=== PATIENT | female | born 1990 | race African-American/Black ===

== ENCOUNTER 2020-07-31 11:12 | Inpatient (IN) | payer SELFPAY ==
[2020-07-31] MEDS ORDERED: Butorphanol 1 MG/ML SDV IVPUSH PRN (11:43)
[2020-07-31] MEDS ORDERED: Water For Irrigation,Sterile 1,000 ML Container IRR PRN (11:43)
[2020-07-31] MEDS ORDERED: Carboprost Tromethamine 250 MCG/1 ML Amp IM PRN (11:43)
[2020-07-31] MEDS ORDERED: Sodium Chloride 0.9% 2.5 ML Syringe FLUSH PRN (11:43)
[2020-07-31] MEDS ORDERED: Misoprostol 200 MCG Tab PO PRN (11:43)
[2020-07-31] MEDS ORDERED: Methylergonovine 0.2 MG/1 ML Amp IM PRN (11:43)
[2020-07-31] MEDS ORDERED: Lidocaine 1% 50 ML MDV INJECT PRN (11:43)
[2020-07-31] MEDS ORDERED: Sodium Chloride 0.9% 10 ML SDV IV PRN (11:43)
[2020-07-31] MEDS ORDERED: Tranexamic Acid 1,000 MG in Sodium Chloride 0.9% 100 ML IV PRN (11:43)
[2020-07-31] MEDS ORDERED: Nalbuphine 10 MG/1 ML Vial IVPUSH PRN (11:43)
[2020-07-31] MEDS ORDERED: Sodium Chloride 0.9% 10 ML Syringe FLUSH PRN (11:43)
[2020-07-31] MEDS ORDERED: Oxytocin/0.9 % Sodium Chloride 30 UNIT/500 ML BAG IV SCH (11:45)
[2020-07-31] MEDS ORDERED: Lactated Ringers 1,000 ML IV SCH (11:45)
--- NOTE | 2020-07-31 13:37 | PCM.LDHP ---
L&D History of Present Illness - General Date of Service: 07/31/20 Admit Problem/Dx: Patient Status Order with Admit Dx/Problem 07/31/20 11:43 Patient Status [ADT] Routine Admission Diagnosis/Problem Admission Diagnosis/Problem Source of Information: Patient History Limitations: Reports: No Limitations - History of Present Illness Improves with: Reports: None Worsens with: Reports: None Associated Symptoms: Reports: N - Related Data Allergies/Adverse Reactions: Allergies Allergy/AdvReac Type Severity Reaction Status Date / Time No Known Allergies Allergy Verified 07/31/20 11:43 Social & Family History - Tobacco Use Tobacco Use Status *Q: Never Tobacco User Second Hand Smoke Exposure: No - Recreational Drug Use Recreational Drug Use: No H&P Review of Systems - Review of Systems: Review Of Systems: See Below General: Reports: No Symptoms HEENT: Reports: No Symptoms Pulmonary: Reports: No Symptoms Cardiovascular: Reports: No Symptoms Gastrointestinal: Reports: No Symptoms Genitourinary: Reports: No Symptoms Musculoskeletal: Reports: No Symptoms Skin: Reports: No Symptoms Psychiatric: Reports: No Symptoms Neurological: Reports: No Symptoms Hematologic/Lymphatic: Reports: No Symptoms Immunologic: Reports: No Symptoms L&D Exam - Exam Exam: See Below - Vital Signs Weight: 77.564 kg - OB Specific Contraction Intensity: Moderate Movement: Active Heart Tones: Present Presentation: Vertex - Banks Score Banks Score Cervix Position: Midposition Banks Score Consistency: Soft Banks Score Effacement: >80% Banks Score Dilation: > 5 cm Banks Score Infant's Station: -2 Banks Score Total: 10 - Exam General: Alert, Oriented HEENT: PERRLA, Conjunctiva Clear, EACs Clear, EOMI, Hearing Intact, Mucosa Moist & [place], Nares Patent, Normal Nasal Septum, Posterior Pharynx Clear, TMs Clear Neck: Supple, Trachea Midline Lungs: Clear to Auscultation, Normal Respiratory Effort Cardiovascular: Regular Rate, Regular Rhythm GI/Abdominal Exam: Normal Bowel Sounds, Soft, Non-Tender, No Organomegaly, No Distention, No Abnormal Bruit, No Mass, Pelvis Stable Rectal Exam: Normal Exam, Normal Rectal Tone Genitourinary: Normal external exam, Normal bimanual exam, Normal speculum exam Back Exam: Normal Inspection, Full Range of Motion Extremities: Normal Inspection, Normal Range of Motion, Non-Tender, No Pedal Edema, Normal Capillary Refill Skin: Warm, Dry, Intact Neurological: Cranial Nerves Intact, Reflexes Equal Bilateral Psychiatric: Alert, Normal Affect, Normal Mood - Patient Data Lab Results Last 24 hrs: Laboratory Results - last 24 hr 07/31/20 07/31/20 07/31/20 Range/Units 12:00 12:10 12:10 WBC 7.30 (4.0-11.0) K/uL RBC 3.87 L (4.30-5.90) M/uL Hgb 10.9 L (12.0-16.0) g/dL Hct 34.3 L (36.0-46.0) % MCV 88.6 (80.0-98.0) fL MCH 28.2 (27.0-32.0) pg MCHC 31.8 (31.0-37.0) g/dL RDW Std Deviation 48.2 (28.0-62.0) fl RDW Coeff of Thomas 15 (11.0-15.0) % Plt Count 350 (150-400) K/uL MPV 8.80 (7.40-12.00) fL Nucleated RBC % 0.0 /100WBC Nucleated RBCs # 0 K/uL SARS-CoV-2 RNA (VINAY) NEGATIVE (NEGATIVE) Blood Type O POSITIVE Antibody Screen NEGATIVE Result Diagrams: 07/31/20 12:10 Problem List Initiated/Reviewed/Updated: Yes Orders Last 24hrs: Active Orders 24 hr Category Date Time Status Patient Status [ADT] Routine ADT 07/31/20 11:43 Active Heart Tones [RC] CONTINUOUS Care 07/31/20 11:43 Active Non Stress Test [RC] PER UNIT ROUTINE Care 07/31/20 11:43 Active May Shower [RC] ASDIRECTED Care 07/31/20 11:43 Active Notify Provider [RC] PRN Care 07/31/20 11:43 Active Up ad Libia [RC] ASDIRECTED Care 07/31/20 11:43 Active Vaginal Exam [RC] PRN Care 07/31/20 11:43 Active Vital Signs [RC] PER UNIT ROUTINE Care 07/31/20 11:43 Active RPR (SYPHILIS SERO) W/ RFLX [REF] Routine Lab 07/31/20 12:10 Received Butorphanol [Stadol] Med 07/31/20 11:43 Active 1 mg IVPUSH Q1H PRN Carboprost Tromethamine [Hemabate DS] Med 07/31/20 11:43 Active 250 mcg IM ASDIRECTED PRN Lactated Ringers [Ringers, Lactated] 1,000 ml Med 07/31/20 11:45 Active IV ASDIRECTED Lidocaine 1% [Xylocaine 1%] Med 07/31/20 11:43 Active 50 ml INJECT ONETIME PRN Methylergonovine [Methergine] Med 07/31/20 11:43 Active 0.2 mg IM ASDIRECTED PRN Nalbuphine [Nubain] Med 07/31/20 11:43 Active 10 mg IVPUSH Q1H PRN Oxytocin/0.9 % Sodium Chloride [Oxytocin 30 Unit/500 ML Med 07/31/20 11:45 Active -NS] 30 unit in 500 ml IV TITRATE Sodium Chloride 0.9% [Normal Saline] Med 07/31/20 11:43 Active 10 ml IV ASDIRECTED PRN Sodium Chloride 0.9% [Saline Flush] Med 07/31/20 11:43 Active 10 ml FLUSH ASDIRECTED PRN Sodium Chloride 0.9% [Saline Flush] Med 07/31/20 11:43 Active 2.5 ml FLUSH ASDIRECTED PRN Tranexamic Acid [Cyklokapron] 1,000 mg Med 07/31/20 11:43 Active Sodium Chloride 0.9% [Normal Saline] 100 ml IV ONETIME Water For Irrigation,Sterile [Sterile Water for Med 07/31/20 11:43 Active Irrigation] 1,000 ml IRR ASDIRECTED PRN miSOPROStoL [Cytotec] Med 07/31/20 11:43 Active 200 mcg PO ONETIME PRN Scalp Electrode [WOMSER] Per Unit Routine Oth 07/31/20 11:43 Ordered Peripheral IV Insertion Adult [OM.PC] Routine Oth 07/31/20 11:43 Ordered Resuscitation Status Routine Resus Stat 07/31/20 11:43 Ordered Medication Orders Butorphanol Tartrate (Stadol) 1 mg IVPUSH Q1H PRN PRN Reason: Pain Carboprost Tromethamine (Hemabate Ds) 250 mcg IM ASDIRECTED PRN PRN Reason: Post Hemorrhage Oxytocin/Sodium Chloride (Oxytocin 30 Unit/500 Ml-Ns) 30 unit in 500 mls @ 500 mls/hr IV TITRATE [facility] Tranexamic Acid 1,000 mg/ (Sodium Chloride) 110 mls @ 660 mls/hr IV ONETIME PRN PRN Reason: Bleeding Lactated Ringer's (Ringers, Lactated) 1,000 mls @ 150 mls/hr IV ASDIRECTED JUNE Lidocaine HCl (Xylocaine 1%) 50 ml INJECT ONETIME PRN PRN Reason: Laceration repair Methylergonovine Maleate (Methergine) 0.2 mg IM ASDIRECTED PRN PRN Reason: Post Hemorrhage Misoprostol (Cytotec) 200 mcg PO ONETIME PRN PRN Reason: Post Hemorrhage Nalbuphine HCl (Nubain) 10 mg IVPUSH Q1H PRN PRN Reason: Pain (severe 7-10) Sodium Chloride (Saline Flush) 10 ml FLUSH ASDIRECTED PRN PRN Reason: Keep Vein Open Sodium Chloride (Saline Flush) 2.5 ml FLUSH ASDIRECTED PRN PRN Reason: Keep Vein Open Sodium Chloride (Normal Saline) 10 ml IV ASDIRECTED PRN PRN Reason: IV Use Sterile Water (Sterile Water For Irrigation) 1,000 ml IRR ASDIRECTED PRN PRN Reason: delivery Assessment/Plan Comment:: P3003 Term in active labor. GBS is negative.
[2020-07-31] MEDS ORDERED: Bisacodyl 10 MG Supp RECTAL PRN (15:29)
[2020-07-31] MEDS ORDERED: Acetaminophen 500 MG Tab PO PRN ×2 (15:29)
[2020-07-31] MEDS ORDERED: Docusate Sodium 100 MG Cap PO PRN (15:29)
[2020-07-31] MEDS ORDERED: Witch Hazel Medicated Pads 40/Jar TOP PRN (15:29)
[2020-07-31] MEDS ORDERED: Benzocaine/Menthol 20%-0.5% Spray 78 GM Cannister TOP PRN (15:29)
[2020-07-31] MEDS ORDERED: Lanolin 100% Cream 7 GM Tube TOP PRN (15:29)
[2020-07-31] MEDS ORDERED: Ibuprofen 400 MG Tab PO PRN (15:29)
[2020-07-31] MEDS ORDERED: oxyCODONE 5 MG Tab PO PRN (15:29)
[2020-07-31] MEDS: Ibuprofen 800 MG Tab PO PRN (18:05)
[2020-08-01] MEDS: Ibuprofen 800 MG Tab PO PRN (02:04)
--- NOTE | 2020-08-01 09:05 | PCM.PNPP ---
- General Info Date of Service: 08/01/20 Functional Status: Reports: Pain Controlled - Review of Systems General: Reports: No Symptoms HEENT: Reports: No Symptoms Pulmonary: Reports: No Symptoms Cardiovascular: Reports: No Symptoms Gastrointestinal: Reports: No Symptoms Genitourinary: Reports: No Symptoms Musculoskeletal: Reports: No Symptoms Skin: Reports: No Symptoms Neurological: Reports: No Symptoms Psychiatric: Reports: No Symptoms - General Info Date of Service: 08/01/20 - Patient Data Vital Signs - Most Recent: Last Vital Signs Temp 37.1 C 08/01/20 08:00 Pulse 84 08/01/20 08:00 Resp 12 08/01/20 08:00 BP 107/65 08/01/20 08:00 Pulse Ox 99 08/01/20 08:00 Weight - Most Recent: 77.564 kg Lab Results - Last 24 Hours: Laboratory Results - last 24 hr 07/31/20 07/31/20 07/31/20 Range/Units 12:00 12:10 12:10 WBC 7.30 (4.0-11.0) K/uL RBC 3.87 L (4.30-5.90) M/uL Hgb 10.9 L (12.0-16.0) g/dL Hct 34.3 L (36.0-46.0) % MCV 88.6 (80.0-98.0) fL MCH 28.2 (27.0-32.0) pg MCHC 31.8 (31.0-37.0) g/dL RDW Std Deviation 48.2 (28.0-62.0) fl RDW Coeff of Thomas 15 (11.0-15.0) % Plt Count 350 (150-400) K/uL MPV 8.80 (7.40-12.00) fL Nucleated RBC % 0.0 /100WBC Nucleated RBCs # 0 K/uL SARS-CoV-2 RNA (VINAY) NEGATIVE (NEGATIVE) Blood Type O POSITIVE Antibody Screen NEGATIVE 08/01/20 Range/Units 05:55 WBC (4.0-11.0) K/uL RBC (4.30-5.90) M/uL Hgb 9.3 L (12.0-16.0) g/dL Hct 30.1 L (36.0-46.0) % MCV (80.0-98.0) fL MCH (27.0-32.0) pg MCHC (31.0-37.0) g/dL RDW Std Deviation (28.0-62.0) fl RDW Coeff of Thomas (11.0-15.0) % Plt Count (150-400) K/uL MPV (7.40-12.00) fL Nucleated RBC % /100WBC Nucleated RBCs # K/uL SARS-CoV-2 RNA (VINAY) (NEGATIVE) Blood Type Antibody Screen Med Orders - Current: Current Medications Acetaminophen (Tylenol Extra Strength) 500 mg PO Q4H PRN PRN Reason: Pain Acetaminophen (Tylenol Extra Strength) 1,000 mg PO Q4H PRN PRN Reason: Pain Benzocaine/Menthol (Dermoplast Pain Relief 20%-0.5% [place]) 78 gm TOP ASDIRECTED PRN PRN Reason: Perineal Comfort Measure Last Admin: 07/31/20 20:13 Dose: 1 canister Documented by: Bisacodyl (Dulcolax) 10 mg RECTAL ONETIME PRN PRN Reason: Constipation Butorphanol Tartrate (Stadol) 1 mg IVPUSH Q1H PRN PRN Reason: Pain Carboprost Tromethamine (Hemabate Ds) 250 mcg IM ASDIRECTED PRN PRN Reason: Post Hemorrhage Docusate Sodium (Colace) 100 mg PO BID PRN PRN Reason: Constipation Emollient Ointment (Lansinoh Hpa) 0 gm TOP ASDIRECTED PRN PRN Reason: Sore Nipples Oxytocin/Sodium Chloride (Oxytocin 30 Unit/500 Ml-Ns) 30 unit in 500 mls @ 500 mls/hr IV TITRATE [facility] Tranexamic Acid 1,000 mg/ (Sodium Chloride) 110 mls @ 660 mls/hr IV ONETIME PRN PRN Reason: Bleeding Lactated Ringer's (Ringers, Lactated) 1,000 mls @ 150 mls/hr IV ASDIRECTED JUNE Ibuprofen (Motrin) 400 mg PO Q4H PRN PRN Reason: Pain Ibuprofen (Motrin) 800 mg PO Q6H PRN PRN Reason: Pain Last Admin: 08/01/20 02:04 Dose: 800 mg Documented by: Lidocaine HCl (Xylocaine 1%) 50 ml INJECT ONETIME PRN PRN Reason: Laceration repair Methylergonovine Maleate (Methergine) 0.2 mg IM ASDIRECTED PRN PRN Reason: Post Hemorrhage Misoprostol (Cytotec) 200 mcg PO ONETIME PRN PRN Reason: Post Hemorrhage Nalbuphine HCl (Nubain) 10 mg IVPUSH Q1H PRN PRN Reason: Pain (severe 7-10) Oxycodone HCl (Oxycodone) 5 mg PO Q2H PRN PRN Reason: Pain Sodium Chloride (Saline Flush) 10 ml FLUSH ASDIRECTED PRN PRN Reason: Keep Vein Open Sodium Chloride (Saline Flush) 2.5 ml FLUSH ASDIRECTED PRN PRN Reason: Keep Vein Open Sodium Chloride (Normal Saline) 10 ml IV ASDIRECTED PRN PRN Reason: IV Use Sterile Water (Sterile Water For Irrigation) 1,000 ml IRR ASDIRECTED PRN PRN Reason: delivery Witjuan Marjan (Tucks) 1 pad TOP ASDIRECTED PRN PRN Reason: comfort care Last Admin: 07/31/20 20:12 Dose: 1 container Documented by: - Infant Interaction Disposition, : in Room with Family Infant Interaction: Holding Feeding: Attempted ; Nursed Fair/Poor Support Person: Sister - Recovery Exam Fundal Tone: Firm Fundal Level: At Umbilicus Fundal Placement: Midline Lochia Amount: Scant, Small Lochia Color: Rubra/Red Perineum Description: Intact, Minimal Bruising/Swelling Episiotomy/Laceration: None Bladder Status: Voiding Urinary Elimination: Voided - Exam General: Alert, Oriented HEENT: Pupils Equal Neck: Supple Lungs: Clear to Auscultation, Normal Respiratory Effort Cardiovascular: Regular Rate, Regular Rhythm GI/Abdominal Exam: Normal Bowel Sounds, Soft, Non-Tender, No Organomegaly, No Distention, No Abnormal Bruit, No Mass, Pelvis Stable Extremities: Normal Inspection, Normal Range of Motion, Non-Tender, No Pedal Edema, Normal Capillary Refill Skin: Warm, Dry, Intact Wound/Incisions: Healing Well Neurological: No New Focal Deficit Psy/Mental Status: Alert, Normal Affect, Normal Mood - Problem List Review Problem List Initiated/Reviewed/Updated: Yes - My Orders Last 24 Hours: My Active Orders 07/31/20 11:43 May Shower [RC] ASDIRECTED Up ad Libia [RC] ASDIRECTED Vital Signs [RC] PER UNIT ROUTINE Butorphanol [Stadol] 1 mg IVPUSH Q1H PRN Carboprost Tromethamine [Hemabate DS] 250 mcg IM ASDIRECTED PRN Lidocaine 1% [Xylocaine 1%] 50 ml INJECT ONETIME PRN Methylergonovine [Methergine] 0.2 mg IM ASDIRECTED PRN Nalbuphine [Nubain] 10 mg IVPUSH Q1H PRN Sodium Chloride 0.9% [Normal Saline] 10 ml IV ASDIRECTED PRN Sodium Chloride 0.9% [Saline Flush] 10 ml FLUSH ASDIRECTED PRN Sodium Chloride 0.9% [Saline Flush] 2.5 ml FLUSH ASDIRECTED PRN Tranexamic Acid [Cyklokapron] 1,000 mg Sodium Chloride 0.9% [Normal Saline] 100 ml IV ONETIME Water For Irrigation,Sterile [Sterile Water for Irrigation] 1,000 ml IRR ASDIRECTED PRN miSOPROStoL [Cytotec] 200 mcg PO ONETIME PRN Scalp Electrode [WOMSER] Per Unit Routine Peripheral IV Insertion Adult [OM.PC] Routine Resuscitation Status Routine 07/31/20 11:45 Lactated Ringers [Ringers, Lactated] 1,000 ml IV ASDIRECTED Oxytocin/0.9 % Sodium Chloride [Oxytocin 30 Unit/500 ML-NS] 30 unit in 500 ml IV TITRATE 07/31/20 12:10 RPR (SYPHILIS SERO) W/ RFLX [REF] Routine 07/31/20 15:29 Patient Status [ADT] Routine Acetaminophen [Tylenol Extra Strength] 1,000 mg PO Q4H PRN Acetaminophen [Tylenol Extra Strength] 500 mg PO Q4H PRN Benzocaine/Menthol [Dermoplast Pain Relief 20%-0.5% [place]] 78 gm TOP ASDIRECTE D PRN Docusate Sodium [Colace] 100 mg PO BID PRN Ibuprofen [Motrin] 400 mg PO Q4H PRN Ibuprofen [Motrin] 800 mg PO Q6H PRN Lanolin [Lansinoh HPA] See Dose Instructions TOP ASDIRECTED PRN bisacodyL [Dulcolax] 10 mg RECTAL ONETIME PRN oxyCODONE 5 mg PO Q2H PRN witch Marjan [Tucks] 1 pad TOP ASDIRECTED PRN Assess Lochia [WOMSER] Per Unit Routine Assess Uterine Involution [WOMSER] Per Unit Routine Peripheral IV Discontinue [OM.PC] Routine - Plan Plan:: P3003 Term in active labor. GBS is negative.
--- NOTE | 2020-08-04 10:12 | OR ---
SURGEON: Golden Burgos MD DATE OF PROCEDURE: 07/31/2020 This patient is 30 years old. She is para 3-0-0-3, all of them delivered vaginal delivery in [facility]. She is here in active labor. She is 39 plus weeks. She is followed by our midwifery service without any complication. Her GBS status was negative. The patient is admitted. At the time of admission, she was 7 cm complete vertex with bulging bag of water and moderate contraction. I did an artificial rupture of the membrane with clear fluid. heart rate was category I. The patient did not have epidural, and then she progressed to complete, complete, 0 to +1 station. Examination shows that fetus is occiput posterior. The patient tried to push it out occiput posterior, but was unable. I used kiwi vacuum extraction to rotate it occiput anterior easily, and then we accomplished normal spontaneous vaginal delivery of a female fetus. scores reported to be 8 and 9. Weight is not available. The placenta delivered spontaneous, complete, and intact. There was no need for episiotomy. There was no labial, vaginal, or perineal laceration. The placenta delivered spontaneous, complete, and intact. Estimated blood loss was 350 to 400 mL. heart rate was category I through the entire process of labor. There was no complication in the labor and delivery process of this patient. DIOGENES / TITO /[id number]
== END 2020-08-01 17:40 | disposition home or self-care (01) | DRG 807 ==
LOC: MW.OBCHECK 11:12 → MW.OB 11:13 → MW.OBCHECK 11:42 → MW.OB 11:43 → OBSVTOIN 15:18 → MW.OB 20:07
PROVIDERS: ADMIT Obstetrics & Gynecology; ATTEND Obstetrics & Gynecology
PROC: 10D07Z6 Extraction of Products of Conception, Vacuum, Via Natural or Artificial Opening (ICD-10-PCS; principal; 2020-07-31)
PROC: 10907ZC Drainage of Amniotic Fluid, Therapeutic from Products of Conception, Via Natural or Artificial Opening (ICD-10-PCS; 2020-07-31)
DX: O80 Encounter for full-term uncomplicated delivery (principal); Z37.0 Single live birth; O66.5 Attempted application of vacuum extractor and forceps; Z3A.39 39 weeks gestation of pregnancy; Z20.828 Contact with and (suspected) exposure to other viral communicable diseases
CPT/HCPCS: 36415; 59025; 59409; 85014; 85018; 85027; 86592; 86850; 86900; 86901; A9270-GY; U0002

== ENCOUNTER 2024-11-20 21:41 | Emergency (ER) | payer BC ==
[2024-11-20] MEDS: Diphtheria,Pertussis(Acell),Tetanus Vaccine 0.5 ML Syringe IM ONE (23:03)
== END 2024-11-20 23:30 | disposition home or self-care (01) ==
LOC: MW.ED 21:41
DX: S91.011A Laceration without foreign body, right ankle, initial encounter (principal); Z23 Encounter for immunization; W25.XXXA Contact with sharp glass, initial encounter
CPT/HCPCS: 12001; 90471; 90715; 99282; 99282-25

== ENCOUNTER 2024-12-16 18:11 | Emergency (ER) | payer BC ==
[2024-12-16 18:54] LABS: BASOPHILS ABSOLUTE AUTO 0.03 K/uL (0.00-0.20); BASOPHILS PERCENT AUTO 0.5 % (0.0-1.0); EOSINOPHILS ABSOLUTE AUTO 0.04 K/uL (0.00-0.45); EOSINOPHILS PERCENT AUTO 0.7 % (0.0-6.0); HEMATOCRIT 33.4 % (37.0-47.0); HEMOGLOBIN 11.7 g/dL (12.0-16.0); IMMATURE GRAN ABSOLUTE AUTO 0.01 K/uL (0.00-0.05); IMMATURE GRAN PERCENT AUTO 0.2 % (0.0-0.4); LYMPHOCYTES ABSOLUTE AUTO 1.84 K/uL (1.00-4.80); LYMPHOCYTES PERCENT AUTO 32.5 % (24.0-44.0); MEAN CORPUSCULAR HEMOGLOBIN 30.2 pg (28.0-32.0); MEAN CORPUSCULAR VOLUME 86.1 fL (83.0-99.0); MEAN PLATELET VOLUME 7.8 fL (9.4-12.3); MONOCYTES ABSOLUTE AUTO 0.15 K/uL (0.00-0.80); MONOCYTES PERCENT AUTO 2.6 % (0.0-8.0); NEUTROPHILS PERCENT AUTO 63.5 % (41.0-71.0); PLATELET COUNT,PLT 316 K/uL (150-400); RED BLOOD CELL COUNT 3.88 M/uL (4.10-5.30); WHITE BLOOD CELL COUNT,WBC 5.67 K/uL (3.9-11.3)
[2024-12-16 19:07] LABS: INR 1.05 (0.86-1.11)
[2024-12-16 19:23] LABS: A/G RATIO 0.9 (0.9-1.6); ALANINE AMINOTRANSFERASE,ALT 23 IU/L (14-63); ALBUMIN 3.7 g/dL (3.4-5.0); ALKALINE PHOSPHATASE 91 U/L (46-116); ASPARTATE AMNIOTRANSFERASE,AST 20 IU/L (15-37); BILIRUBIN TOTAL 0.5 mg/dL (0.2-1.0); BLOOD UREA NITROGEN,BUN 10 mg/dL (7.0-18.0); CALCIUM 8.9 mg/dL (8.5-10.1); CARBON DIOXIDE,CO2 22.3 mmol/L (21.0-32.0); CHLORIDE,CL 104 mmol/L (98-107); CREATININE 0.7 mg/dL (0.6-1.0); GLUCOSE RANDOM 122 mg/dL (74-106); LIPASE 29 U/L (16-77); MAGNESIUM 1.8 mg/dL (1.8-2.4); POTASSIUM,K 3.2 mmol/L (3.5-5.1); PRO B-TYPE NATRIUR PEPT,BNPPRO 59 pg/mL (0-125); SODIUM,NA 140 mmol/L (136-145)
[2024-12-16 19:25] LABS: ESTIMATED GFR 115 mL/min (>60)
[2024-12-16] MEDS: Ketorolac 30 MG/ML SDV IVPUSH ONE (20:13)
[2024-12-16] MEDS: Dexamethasone 4 MG/ML SDV IVPUSH ONE (20:19)
[2024-12-16] MEDS: Pantoprazole 40 MG in Sodium Chloride 0.9% 10 ML IVPUSH ONE (20:25)
== END 2024-12-16 21:26 | disposition home or self-care (01) ==
LOC: MW.ED 18:11
DX: R07.2 Precordial pain (principal); Z79.899 Other long term (current) drug therapy; Z75.8 Other problems related to medical facilities and other health care
CPT/HCPCS: 36415; 71045; 80053; 83690; 83735; 83880; 84484; 84703; 85025; 85610; 93005; 96374; 96375; 99285; J1100; J1885; J2470; 93010; 99284

== ENCOUNTER 2024-12-22 16:06 | Emergency (ER) | payer BC ==
[2024-12-22 17:15] LABS: BASOPHILS ABSOLUTE AUTO 0.03 K/uL (0.00-0.20); BASOPHILS PERCENT AUTO 0.5 % (0.0-1.0); EOSINOPHILS ABSOLUTE AUTO 0.06 K/uL (0.00-0.45); EOSINOPHILS PERCENT AUTO 1.1 % (0.0-6.0); HEMATOCRIT 34.9 % (37.0-47.0); HEMOGLOBIN 12.1 g/dL (12.0-16.0); IMMATURE GRAN ABSOLUTE AUTO 0.01 K/uL (0.00-0.05); IMMATURE GRAN PERCENT AUTO 0.2 % (0.0-0.4); LYMPHOCYTES ABSOLUTE AUTO 2.12 K/uL (1.00-4.80); LYMPHOCYTES PERCENT AUTO 37.5 % (24.0-44.0); MEAN CORPUSCULAR HEMOGLOBIN 29.9 pg (28.0-32.0); MEAN CORPUSCULAR HGB CONC 34.7 g/dL (32.0-36.0); MEAN CORPUSCULAR VOLUME 86.2 fL (83.0-99.0); MEAN PLATELET VOLUME 7.8 fL (9.4-12.3); MONOCYTES PERCENT AUTO 3.5 % (0.0-8.0); NEUTROPHILS ABSOLUTE AUTO 3.23 K/uL (1.80-7.70); NEUTROPHILS PERCENT AUTO 57.2 % (41.0-71.0); PLATELET COUNT,PLT 369 K/uL (150-400); RED BLOOD CELL COUNT 4.05 M/uL (4.10-5.30); WHITE BLOOD CELL COUNT,WBC 5.65 K/uL (3.9-11.3)
[2024-12-22] MEDS: Cyclobenzaprine 10 MG Tab PO ONE (17:24)
[2024-12-22] MEDS: Lidocaine 4% Patch TOP STA (17:25)
[2024-12-22 17:45] LABS: A/G RATIO 0.9 (0.9-1.6); BILIRUBIN TOTAL 0.3 mg/dL (0.2-1.0); CALCIUM 9.2 mg/dL (8.5-10.1); CARBON DIOXIDE,CO2 22.2 mmol/L (21.0-32.0); CREATININE 0.7 mg/dL (0.6-1.0); EST CRCL DRUG DOSING (CG) 105.06 mL/min; POTASSIUM,K 3.1 mmol/L (3.5-5.1); PROTEIN TOTAL,TP 8.6 g/dL (6.4-8.2)
[2024-12-22] MEDS: Iopamidol 755 MG/ML 500 ML Multipack Bottle IVPUSH STA (18:38)
[2024-12-22] MEDS: Potassium Chloride 20 MEQ Tab.ER PO ONE (19:33)
[2024-12-22] MEDS: Apixaban 5 MG Tab PO STA (19:33)
== END 2024-12-22 19:43 | disposition home or self-care (01) ==
LOC: MW.ED 16:06
DX: I26.99 Other pulmonary embolism without acute cor pulmonale (principal); E87.6 Hypokalemia; Z79.01 Long term (current) use of anticoagulants; Z79.899 Other long term (current) drug therapy; Z75.3 Unavailability and inaccessibility of health-care facilities
CPT/HCPCS: 36415; 71275; 80053; 85025; 85379; 99285; A9270; Q9967; 99283